=== PATIENT | male | born 1990 | race African-American/Black ===

== ENCOUNTER 2017-12-16 12:56 | Emergency (ER) | payer SELFPAY ==
[~2017-12-16] VITALS: Ht 182.9 cm; Wt 79.4 kg
[2017-12-16 13:37] VITALS: BP 147/87
--- NOTE | 2017-12-16 14:20 | Emergency Room Report ---
History of Present Illness General Chief Complaint: Dyspnea/Respdistress Source: Patient Present Illness HPI 46-year-old male presents to the emergency department complaining of 8 out of 10 in severity pain with coughing which has been progressive 3 days. Patient reports he has arty been evaluated for URI and prescribed steroids, albuterol nebulized treatments and antibiotics. Patient reports that he continues to have a painful dry cough when he attempts to take a deep breath or with talking. Patient reports the more he coughs the more he experiences pain throughout his rib cage. Patient denies fevers or chills he reports history of asthma states that his wheezing for the most part has been relieved by albuterol treatments at home however he does have small amount of residual wheezing after treatments. Patient denies recent travel or ill contacts. He denies chest pain while at rest/not coughing. Patient denies changes in severity of pain with lying down or leaning forward. Denies recent travel, claudication or smoking history. Patient reports that he has recently moved here from [place] and has been noticing that he is been having severe allergies. Denies cardiac past medical hx. Allergies: Coded Allergies: No Known Allergies (Unverified , 12/16/17) Patient History Past Medical History: see triage record, asthma Past Surgical History: none Pertinent Family History: none Immunizations: UTD Reviewed Nursing Documentation: PMH: Agreed; PSxH: Agreed Nursing Documentation-PMH Past Medical History: No History, Except For Review of Systems All Other Systems: negative except mentioned in HPI Physical Exam Vital Signs Date Time Temp Pulse Resp B/P (MAP) Pulse Ox O2 Delivery O2 Flow Rate FiO2 12/16/17 13:15 98.4 67 22 147/87 96 Room Air 98.4 Sp02 EP Interpretation: reviewed, normal General Appearance: no apparent distress, alert, GCS 15, non-toxic Head: normocephalic, atraumatic Eyes: bilateral eye normal inspection, bilateral eye PERRL ENT: hearing grossly normal, normal voice Neck: full range of motion Respiratory: chest non-tender - TTP through out chest anteriorly and posteriorly. , lungs clear, normal breath sounds, no rhonchi, no respiratory distress, no accessory muscle use, speaking full sentences, wheezing - scant bilaterally with exhaling and very faint high pitched wheeze heard occasionally at the begining of a breath. Cardiovascular #1: regular rate, rhythm, no edema, normal capillary refill Musculoskeletal: back normal, gait/station normal, normal range of motion, non- tender Neurologic: alert, oriented x3, responsive, motor strength/tone normal, sensory intact, normal gait, speech normal, grossly normal Psychiatric: judgement/insight normal Skin: normal color, no rash, warm/dry, well hydrated Lymphatic: no adenopathy Medical Decision Making PA Attestation Dr. Bernard is my supervising Physician whom patient management has been discussed with. Diagnostic Impression: Primary Impression: Bronchitis, acute, with bronchospasm ER Course 46-year-old male presents to the emergency department complaining of 8 out of 10 in severity pain with coughing which has been progressive 3 days. Patient reports he has arty been evaluated for URI and prescribed steroids, albuterol nebulized treatments and antibiotics. Patient reports that he continues to have a painful dry cough when he attempts to take a deep breath or with talking. Patient reports the more he coughs the more he experiences pain throughout his rib cage. Patient denies fevers or chills he reports history of asthma states that his wheezing for the most part has been relieved by albuterol treatments at home however he does have small amount of residual wheezing after treatments. Patient denies recent travel or ill contacts. He denies chest pain while at rest/not coughing. Patient denies changes in severity of pain with lying down or leaning forward. Denies recent travel, claudication or smoking history. Patient reports that he has recently moved here from [place] and has been noticing that he is been having severe allergies. Denies cardiac past medical hx. Ddx considered but are not limited to URI, pneumonia, PE, strep pharyngitis, meningitis. Vital signs: Pt.is afebrile VS are WNL H&PE are most consistent with bronchitis- ORDERS: none required at this time, the diagnosis is clinical ED INTERVENTIONS: None required at this time. Scant wheezes but not in resp. distress, NAD, non-toxic in appearance, Persistent dry cough during exam. DISCHARGE: At this time pt. is stable for d/c to home. Will provide printed patient care instructions, and any necessary prescriptions. Care plan and follow up instructions have been discussed with the patient prior to discharge. Last Vital Signs Date Time Temp Pulse Resp B/P (MAP) Pulse Ox O2 Delivery O2 Flow Rate FiO2 12/16/17 13:37 98.4 67 22 147/87 96 Room Air 98.4 Disposition: HOME, SELF-CARE Condition: Stable Scripts Codeine/Promethazine Hcl* (PROMETHAZINE-CODEINE SYRUP*) 118 Ml Syrup 5 ML ORAL Q6H PRN for For Cough, #120 ML 0 Refills Prov: Tessa Cerna 12/16/17 Benzonatate* (TESSALON PERLE*) 100 Mg Capsule 100 MG ORAL THREE TIMES A DAY, #20 PERLE Prov: Tessa Cerna 12/16/17 Ibuprofen* (MOTRIN*) 600 Mg Tablet 600 MG ORAL THREE TIMES A DAY, #30 TAB 0 Refills Prov: Tessa Cerna 12/16/17 Referrals: NOT CHOSEN IPA/MD,REFERRING (PCP) Patient Instructions: Acute Bronchitis Additional Instructions: Take medications as directed. Follow up with a Primary Care Provider in 3-5 days, even if your symptoms have resolved. --Please review list of primary care clinics, if you do not already have a primary care provider Return sooner to ED if new symptoms occur, or current symptoms become worse. Do not drink alcohol, drive, or operate heavy machinery while taking Cough Syrup as this may cause drowsiness. - Please note that this Emergency Department Report was dictated using [employer] induction heating equipment technology software, occasionally this can lead to erroneous entry secondary to interpretation by the dictation equipment. Tessa Cerna Dec 16, 2017 14:20
[2017-12-16] MEDS ORDERED: IBUPROFEN600 MG ORAL (14:21)
[2017-12-16] MEDS ORDERED: PROMETHAZINE-C118 M1 ORAL (14:21)
[2017-12-16] MEDS ORDERED: TESSALON PERLE100 MG ORAL (14:21)
[2017-12-16 14:26] VITALS: BP 147/87
== END 2017-12-16 14:26 | disposition home or self-care (01) ==
LOC: EMR 14:05
DX: J20.9 Acute bronchitis, unspecified (principal); J44.0 Chronic obstructive pulmonary disease with (acute) lower respiratory infection
CPT/HCPCS: 99283